=== PATIENT | female | born 1995 ===

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

== ENCOUNTER 2017-10-09 23:09 | Emergency (ER) | payer MEDICAID ==
[2017-10-09 23:09] VITALS: BMI 26.9
[2017-10-09 23:25] VITALS: BP 152/77; PULSE 101; RESP 16; TEMP 97.2; O2SAT 100
[2017-10-10] MEDS ORDERED: Sodium Chloride 0.9% 1,000 ML IV STA (00:20)
--- NOTE | 2017-10-10 00:23 | ED PDOC ---
HPI: Back Time Seen by Provider: 10/10/17 00:21 Chief Complaint (Nursing): Back Pain Chief Complaint (Provider): back pain History Per: Patient (22 y/o female h/o fibromyalgia/ herniated discs/ lumbar sx here with worsening back pain at 8pm today while having dinner associated with numbness in arms/legs. Patient states pain is severe and prevents walking. She follows with pain management/neurology/rheumatology for back pain. ) Past Medical History Reviewed: Historical Data, Nursing Documentation, Vital Signs Vital Signs: Last Vital Signs Temp 97.2 F L 10/09/17 23:22 Pulse 101 H 10/09/17 23:22 Resp 16 10/09/17 23:22 BP 152/77 H 10/09/17 23:22 Pulse Ox 100 10/09/17 23:22 - Medical History PMH: Arthritis, Back Problems, Fibromyalgia, Hypercholesterolemia Denies: Chronic Kidney Disease - Surgical History Surgical History: Back Surgery (Herniated Discs x2 2012) - Family History Family History: States: Unknown Family Hx - Immunization History Hx Tetanus Toxoid Vaccination: No Hx Influenza Vaccination: Yes Hx Pneumococcal Vaccination: No - Home Medications Home Medications: Ambulatory Orders Medication Instructions Recorded Meloxicam [Mobic] 7.5 mg PO DAILY 08/29/14 Carbamazepine mg PO BID 08/08/15 Ibuprofen [Motrin] 600 mg PO Q6H #30 tab 08/08/15 Naproxen [Naprosyn] 500 mg PO Q12H #20 tab 09/27/15 traMADol [Ultram] 50 mg PO Q6 PRN #16 tab 09/27/15 Tramadol HCl [Ultram] 50 mg PO Q8 PRN #10 tablet 10/09/15 Naproxen [Naprosyn] 500 mg PO Q12H #20 tab 02/12/16 traMADol [Ultram] 50 mg PO Q8 #10 tab 02/12/16 traMADol [Ultram] 50 mg PO Q6H PRN #15 tab 06/05/16 Azithromycin [Zithromax] 250 mg PO DAILY #6 tab 07/19/16 traMADol [Ultram] 50 mg PO Q8H PRN #6 tab 08/28/16 Cyclobenzaprine [Cyclobenzaprine 10 mg PO BID #14 tab 08/30/16 HCl] Acetaminophen [Acetaminophen Extra 2 tab PO Q6 PRN #24 tablet 10/10/17 Strength] - Allergies Allergies/Adverse Reactions: Allergies Allergy/AdvReac Type Severity Reaction Status Date / Time No Known Allergies Allergy Verified 10/09/17 23:22 Review of Systems ROS Statement: Except As Marked, All Systems Reviewed And Found Negative Physical Exam - Reviewed Nursing Documentation Reviewed: Yes Vital Signs Reviewed: Yes - Physical Exam Appears: Positive for: Well, Non-toxic, No Acute Distress Head Exam: Positive for: ATRAUMATIC, NORMAL INSPECTION, NORMOCEPHALIC Skin: Positive for: Normal Color, Warm, DRY Eye Exam: Positive for: EOMI, Normal appearance, PERRL ENT: Positive for: Normal ENT Inspection Neck: Positive for: Normal, Painless ROM Cardiovascular/Chest: Positive for: Regular Rate, Rhythm Respiratory: Positive for: CNT, Normal Breath Sounds Gastrointestinal/Abdominal: Positive for: Normal Exam, Soft Back: Positive for: Normal Inspection, Vertebral Tenderness (tenderness paralumbar region) Rectal: Positive for: Rectal Tone Is: (normal) Extremity: Positive for: Normal ROM Neurologic/Psych: Positive for: Alert, Oriented - Laboratory Results Result Diagrams: 10/10/17 00:50 10/10/17 00:50 - ECG O2 Sat by Pulse Oximetry: 100 - Progress ED Course And Treament: toradol 15 mg iv x 1 dose valium 5 mg x 1 dose ns 1 liter wide open PATEINT RE-EXAMINED 03:31AM. APPEARS IMPROVED. NOTED TO HAVE INCREASED MOBILITY AND ABLE TO WALK. ACETAMINOPHEN 975MG X 1 DOSE FOR ADDITIONAL PAIN CONTROL. Disposition - Clinical Impression Clinical Impression: Muscle spasm, Leg pain, bilateral - Patient ED Disposition Is Patient to be Admitted: No - Disposition Referrals: Brigido Padilla MD [Primary Care Provider] - Disposition: Routine/Home Disposition Time: 03:33 Condition: FAIR Prescriptions: Acetaminophen [Acetaminophen Extra Strength] 2 tab PO Q6 PRN #24 tablet PRN Reason: Pain, Moderate (4-7) Instructions: Muscle Spasms (DC), Fibromyalgia Forms: [facility] (Malaysian) Print Language: JAMAICAN
[2017-10-10 01:02] LABS: BASO # 0.1 K/uL (0.0-0.2); BASO % 0.7 % (0.0-2.0); EOS # 0.1 K/uL (0.0-0.7); EOS % 1.1 % (0.0-4.0); HEMOGLOBIN 12.6 g/dL (12.0-16.0); LYMPH # 2.6 K/uL (1.0-4.3); LYMPH % 24.6 % (20.0-40.0); MEAN CELL VOLUME 89.6 fl (81.0-99.0); MEAN CORPUSCULAR HGB CONC 34.6 g/dL (33.0-37.0); MEAN PLATELET VOLUME 7.7 fl (7.2-11.7); MONO # 0.5 K/uL (0.0-0.8); MONO % 4.6 % (0.0-10.0); NEUT # 7.2 K/uL (1.8-7.0); RBC 4.07 Mil/uL (3.80-5.20); WHITE BLOOD COUNT 10.5 K/uL (4.8-10.8)
[2017-10-10 01:14] LABS: BLOOD UREA NITROGEN 19 mg/dl (7-17); CALCIUM 9.4 mg/dL (8.4-10.2); GFR AFRICAN-AMERICAN > 60; GFR NON-AFRICAN AMERICAN > 60
== END 2017-10-10 04:57 | disposition home or self-care (01) ==
LOC: H.ER 23:09
DX: M62.830 Muscle spasm of back (principal); M79.606 Pain in leg, unspecified; M79.7 Fibromyalgia; E78.00 Pure hypercholesterolemia, unspecified
CPT/HCPCS: 80048; 81025; 83735; 85025; 96374; 99283; J1885; J7030

== ENCOUNTER 2018-06-22 15:43 | Emergency (ER) | payer MEDICAID ==
[2018-06-22 15:43] VITALS: BMI 26.9
[2018-06-22 15:51] VITALS: BP 119/75; PULSE 96; RESP 18; TEMP 98.2; O2SAT 98
--- NOTE | 2018-06-22 16:09 | ED PDOC ---
HPI: Influenza Time Seen by Provider: 06/22/18 15:49 Chief Complaint: Flu-like Symptoms Chief Complaint (Provider): Flu-like symptoms History Per: Patient Exam Limitations: no limitations Onset/Duration Of Symptoms: Days (2x) Symptoms include: bodyaches, cough, nasal congestion, other (chills. (-) hemoptysis). denies: vomiting, diarrhea, chest pain, difficulty breathing, rash Sick Contacts (Context): Family Member(s) (father, baby sibling) Hx Influenza Vaccination: No (not up to date) Additional complaint(s):: 23 year old female with no pertinent past medical history presents to the ED for an evaluation of flu-like symptoms that started yesterday contrary to triage note. Patient reports having a cough, congestion, bodyaches and chills. Patient reports taking tylenol with transient relief. Patient denies having chest pain, shortness of breath, hemoptysis, recent travel, rashes, nausea, vomiting, and diarrhea. Influenza vaccination is not up to date. PMD: Scott Perez MD Past Medical History Reviewed: Historical Data, Nursing Documentation, Vital Signs Vital Signs: Last Vital Signs Temp 98.2 F 06/22/18 15:47 Pulse 96 H 06/22/18 15:47 Resp 18 06/22/18 15:47 BP 119/75 06/22/18 15:47 Pulse Ox 98 06/22/18 15:47 OSCAR Report Viewed: Yes - Medical History PMH: Arthritis, Back Problems, Fibromyalgia, Hypercholesterolemia Denies: Chronic Kidney Disease - Surgical History Surgical History: Back Surgery (Herniated Discs x2 2012) - Family History Family History: States: No Known Family Hx - Social History Current smoker - smoking cessation education provided: No Alcohol: None Drugs: Denies - Immunization History Hx Tetanus Toxoid Vaccination: No Hx Influenza Vaccination: No (not up to date) Hx Pneumococcal Vaccination: No - Home Medications Home Medications: Ambulatory Orders Medication Instructions Recorded Meloxicam [Mobic] 7.5 mg PO DAILY 08/29/14 Carbamazepine mg PO BID 08/08/15 Ibuprofen [Motrin] 600 mg PO Q6H #30 tab 08/08/15 Naproxen [Naprosyn] 500 mg PO Q12H #20 tab 09/27/15 traMADol [Ultram] 50 mg PO Q6 PRN #16 tab 09/27/15 Tramadol HCl [Ultram] 50 mg PO Q8 PRN #10 tablet 10/09/15 Naproxen [Naprosyn] 500 mg PO Q12H #20 tab 02/12/16 traMADol [Ultram] 50 mg PO Q8 #10 tab 02/12/16 traMADol [Ultram] 50 mg PO Q6H PRN #15 tab 06/05/16 Azithromycin [Zithromax] 250 mg PO DAILY #6 tab 07/19/16 traMADol [Ultram] 50 mg PO Q8H PRN #6 tab 08/28/16 Cyclobenzaprine [Cyclobenzaprine 10 mg PO BID #14 tab 08/30/16 HCl] Acetaminophen [Acetaminophen Extra 2 tab PO Q6 PRN #24 tablet 10/10/17 Strength] Benzonatate [Tessalon Perle] 100 mg PO Q8 PRN #12 capsule 06/22/18 Oseltamivir Cap [Tamiflu] 75 mg PO BID #9 cap 06/22/18 - Allergies Allergies/Adverse Reactions: Allergies Allergy/AdvReac Type Severity Reaction Status Date / Time No Known Allergies Allergy Verified 10/09/17 23:22 Review of Systems ROS Statement: Except As Marked, All Systems Reviewed And Found Negative Constitutional: Positive for: Chills, Other (bodyaches) ENT: Positive for: Nose Congestion Cardiovascular: Negative for: Chest Pain Respiratory: Positive for: Cough. Negative for: Shortness of Breath, Hemoptysis Gastrointestinal: Negative for: Nausea, Vomiting, Diarrhea Skin: Negative for: Rash Physical Exam - Reviewed Nursing Documentation Reviewed: Yes Vital Signs Reviewed: Yes - Physical Exam Appears: Positive for: Well, Non-toxic, No Acute Distress Head Exam: Positive for: ATRAUMATIC, NORMOCEPHALIC Skin: Positive for: Normal Color, Warm, Dry Eye Exam: Positive for: Normal appearance ENT: Positive for: Pharynx Is (clear), TM Is/Are (non bulging, non erythematous), Nasal Congestion. Negative for: Sinus Pain/Drainage, Pharyngeal Erythema, Tonsillar Exudate, Tonsillar Swelling Cardiovascular/Chest: Positive for: Regular Rate, Rhythm Respiratory: Positive for: Normal Breath Sounds Gastrointestinal/Abdominal: Positive for: Normal Exam, Soft. Negative for: Tenderness Neurologic/Psych: Positive for: Alert, Oriented (3x) Medical Decision Making Medical Decision Makin:49 Initial impression: 23 year old female with the flu Initial plan: * tamiflu 75 mg PO * tessalon perles 200 mg PO Scribe Attestation: Documented byAminta Ferrera, acting as a scribe for Vidal Barton Provider Scribe Attestation: All medical record entries made by the Scribe were at my direction and personally dictated by me. I have reviewed the chart and agree that the record accurately reflects my personal performance of the history, physical exam, medical decision making, and the department course for this patient. I have also personally directed, reviewed, and agree with the discharge instructions and disposition. - ECG O2 Sat by Pulse Oximetry: 98 (RA) Pulse Ox Interpretation: Normal Disposition - Clinical Impression Clinical Impression: Influenza-like symptoms - Patient ED Disposition Is Patient to be Admitted: No - Disposition Referrals: [facility] [Outside] Disposition: Routine/Home Disposition Time: 16:07 Condition: STABLE Additional Instructions: FOLLOW UP WITH YOUR DOCTOR FOR FURTHER EVALUATION RETURN TO ED IMMEDIATELY IF SYMPTOMS WORSEN MANUELITO KEITA, thank you for letting us take care of you today. Your provider was Mehran Lopez MD and you were treated for FLU LIKE SYMPTOMS. The emergency medical care you received today was directed at your acute symptoms. If you were prescribed any medication, please fill it and take as directed. It may take several days for your symptoms to resolve. Return to the Emergency Department if your symptoms worsen, do not improve, or if you have any other problems. Please contact your doctor or call one of the physicians/clinics you have been referred to that are listed on the Patient Visit Information form that is included in your discharge packet. Bring any paperwork you were given at discharge with you along with any medications you are taking to your follow up visit. Our treatment cannot replace ongoing medical care by a primary care provider outside of the emergency department. Thank you for allowing the [facility] team to be part of your care today. If you had an X-Ray or CT scan: A Radiologist will review the ED reading if any change in treatment is needed we will contact you. If you had a blood, urine, or wound culture: It will take several days for the results, if any change in treatment is needed we will contact you. If you had an STI test: It will take 48 hours for the results. Please call after 1 week if you have not heard back. Prescriptions: Benzonatate [Tessalon Perle] 100 mg PO Q8 PRN #12 capsule PRN Reason: Cough Oseltamivir Cap [Tamiflu] 75 mg PO BID #9 cap Instructions: Flu, Adult (DC) Forms: [facility] (Faroese), [facility] ED School/Work Excuse
== END 2018-06-22 16:27 | disposition home or self-care (01) ==
LOC: H.ER 15:43
DX: J11.1 Influenza due to unidentified influenza virus with other respiratory manifestations (principal)